=== PATIENT | female | born 1975 | race Caucasian/White ===

== ENCOUNTER 2020-02-01 21:59 | Outpatient (REF) | payer SELFPAY ==
[2020-02-01 22:25] LABS: ALT 26 U/L (14-59); AST 15 U/L (15-37); Albumin 4.1 g/dL (3.4-5.0); Alkaline Phosphatase 74 U/L (46-116); BUN 12 mg/dL (7-18); Bilirubin, Total 0.3 mg/dL (0.2-1.0); Calcium 9.2 mg/dL (8.5-10.1); Calculated LDL 97 mg/dL (<100); Chloride 105 mmol/L (98-107); Cholesterol 185 mg/dL (<200); Glucose 91 mg/dL (74-106); HDL Cholesterol 48 mg/dL (40-60); Potassium 4.5 mmol/L (3.5-5.1); Sodium 142 mmol/L (136-145); Total Protein 7.4 g/dL (6.4-8.2); Triglyceride 200 mg/dL (<150)
[2020-02-01 22:30] LABS: Hemoglobin A1C 5.6 % (3.8-5.6)
== END 2020-02-01 22:19 ==
LOC: NCHCN 21:59
PROVIDERS: PCP Internal Medicine; Visit Provider Family Medicine
DX: Z00.00 Encounter for general adult medical examination without abnormal findings (principal); F11.11 Opioid abuse, in remission; I10 Essential (primary) hypertension; E66.9 Obesity, unspecified
CPT/HCPCS: 80053; 80061; 83036

== ENCOUNTER 2020-02-11 17:10 | Outpatient (REF) | payer OTHER, SELFPAY ==
[2020-02-11 21:15] LABS: Anion Gap 7.3 mmol/L (3-11); BUN 14 mg/dL (7-18); CO2 28.7 mmol/L (21.0-32.0); Calcium 9.2 mg/dL (8.5-10.1); Chloride 105 mmol/L (98-107); Glucose 90 mg/dL (74-106); Potassium 4.3 mmol/L (3.5-5.1); Sodium 141 mmol/L (136-145)
== END 2020-02-11 17:30 ==
LOC: NCHCN 17:10
PROVIDERS: PCP Internal Medicine; Visit Provider Family Medicine
DX: I10 Essential (primary) hypertension (principal)
CPT/HCPCS: 80048

== ENCOUNTER 2021-03-19 17:50 | Outpatient (REF) | payer OTHER, SELFPAY ==
[2021-03-19 21:19] LABS: ESR 8 mm/hr (0-20)
[2021-03-19 21:38] LABS: C-Reactive Protein 0.13 mg/dL (0.0-0.3)
== END 2021-03-19 17:51 | disposition home or self-care (01) ==
LOC: NCHCN 17:50
PROVIDERS: PCP Internal Medicine; Visit Provider Nurse Practitioner Community Health
DX: R20.0 Anesthesia of skin (principal); I73.00 Raynaud's syndrome without gangrene; G43.909 Migraine, unspecified, not intractable, without status migrainosus; G47.62 Sleep related leg cramps; E66.9 Obesity, unspecified
CPT/HCPCS: 85652; 86140

== ENCOUNTER 2021-04-19 10:44 | Emergency (ER) | payer OTHER, SELFPAY ==
[2021-04-19 10:49] VITALS: BP 181/112; PULSE 94; RESP 16; TEMP 36.5; O2SAT 99
--- NOTE | 2021-04-19 11:20 | ED.GENADUL_ITS ---
Discharge Plan Disposition Patient Disposition: HOME Condition: Stable Discharge Details Clinical Impression: Acute otitis externa of left ear Primary Care Provider: Geo Cancino ED Provider: Bismark Ríos Home Meds and New Rx's Prescriptions: New ciprofloxacin HCl 750 mg tablet 750 mg PO BID Qty: 13 RF: 0 ciprofloxacin-dexamethasone [Ciprodex] 0.3-0.1 % drops,suspension 4 drp otic (ear) BID Qty: 7.5 RF: 0 Continued methadone 10 mg/5 mL Solution 105 DAILY RF: 0 methylphenidate HCl 20 mg tablet 20 mg PO TID RF: 0 nifedipine 90 mg Tablet Extended Release 90 mg PO DAILY Qty: 30 RF: 0 lisinopril 5 mg Tablet 5 mg PO DAILY Qty: 30 RF: 0 Discharge Instructions Instructions: Ciprofloxacin/Dexamethasone (Into the ear), How to Stop Smoking (ED), Otitis Externa (ED) Additional Instructions: Please take full course of oral antibiotic as prescribed. Apply 4 drops of antibiotic solution to your left ear twice a day for the next week. Please contact your primary care physician to arrange follow-up. Please follow-up with nuclear technologist Return to the ER for any worsening or new concerning symptoms. Stand Alone Forms: Work Release Referrals: Geo Cancino [Primary Care Provider] - Lester Gar MD [ [facility] STAFF PHYSICIAN] - Medical Decision Making 1124 --46-year-old female smoker here with left ear pain and discharge, significant swelling external auditory canal with tenderness and erythema left mastoid. Suspect acute otitis externa. Considered malignant otitis externa. Plan to obtain CT of the temporal bone. Patient is hypertensive. She notes she has not been taking her antihypertensive regularly as prescribed. Patient has her lisinopril and will take prescribed dose. --Fingerstick glucose within normal limits. 1158 --CT of the sinuses interpreted by radiology, I spoke with Dr. Bonilla who notes no bony destruction and no significant mastoid inflammatory changes. He does note inflammation of the external ear and also fluid inner ear. 1228 --I called and spoke with Dr. Aguirre, on-call ENT, discussed ED presentation and course including diagnostics, he recommends ciprofloxacin 750 twice daily x1 week as well as Cipro Dex drops. He will be happy to see the patient in follow-up. EKG reviewed and interpreted by me to assess for QT prolongation given methadone use: Sinus rhythm 77 bpm, normal axis, QTC 431. Patient provided informed consent to treat with Cipro. An ear wick was placed left ear and Ciprodex initiated. Patient was encouraged to follow-up and usual customary discharge instructions were reviewed with patient. I discussed with patient the need to take her antihypertensives as prescribed. HPI General Mode of arrival: ambulatory . Date/Time Provider Initiated Documentation: 04/19/21 10:52 . Limitations to Documentation: no limitations . Information obtained by: patient . HPI Narrative: 46-year-old female smoker with history of hypertension, poorly compliant with antihypertensives, here with chief complaint of left ear pain. Pain started 4 days ago and has persisted. Pain is constant and severe. She has associated yellow drainage from the ear recently and also has pain behind her ear. She has had associated subjective fever. No associated headache. Related Data Home Medications Medication Instructions Recorded Confirmed ciprofloxacin HCl 750 mg PO BID #13 tab 04/19/21 ciprofloxacin-dexamethasone 4 drp OTIC (EAR) BID #7.5 ml 04/19/21 [Ciprodex] lisinopril 5 mg PO DAILY #30 tab 04/19/21 methadone 105 DAILY 04/19/21 methylphenidate HCl 20 mg PO TID 04/19/21 04/19/21 nifedipine 90 mg PO DAILY #30 tab 04/19/21 Previous Rx's Medication Instructions Recorded ciprofloxacin HCl 750 mg PO BID #13 tab 04/19/21 ciprofloxacin-dexamethasone 4 drp OTIC (EAR) BID #7.5 ml 04/19/21 [Ciprodex] lisinopril 5 mg PO DAILY #30 tab 04/19/21 nifedipine 90 mg PO DAILY #30 tab 04/19/21 Allergies Allergy/AdvReac Type Severity Reaction Status Date / Time No Known Allergies Allergy Unverified 04/19/21 11:02 General Stated Complaint: EarProblem JACLYN: 4 Review of Systems All systems reviewed & are unremarkable except as noted in HPI and below Constitutional Constitutional: Reports as per HPI and Reports fever(s) ENT Ears, Nose, Mouth, and Throat: Reports as per HPI PFSH Medical History Heart murmur Hypertension Smoker Social History Smoking/Tobacco Use Status: Current every day Tobacco Type: cigarettes Smoking risk assessment performed?: Yes Alcohol Intake: current Alcohol Intake frequency: holidays/special occasions only Substance use type: does not use Exam Const General: cooperative and no acute distress HENMT Head: normocephalic and atraumatic Ears: EAC abnormal edema on the left and EAC tenderness on the left; no foreign body and no otic discharge, external ear abnormal pain with movement of external ear, mastoid abnormal (erythema and ttp), periauricular adenopathy on the left and unable to visualize TM on the left General nose exam: external nose normal Mouth: moist mucous membranes Throat: posterior oropharynx normal Eyes Conjunctivae: normal conjunctivae Sclera: normal sclerae Neck Neck: trachea midline and supple Resp Auscultation: clear to auscultation bilaterally, no rales, no rhonchi and no wheezes Cardio Rate: regular rate and not tachycardic Rhythm: regular rhythm Skin General skin exam: no rashes or lesions noted Neuro General: patient alert, patient awake, patient oriented x3 and tone normal Extrem General: no edema Psych Appearance: grossly normal Mental Status: mental status grossly normal Course Vital Signs Vital signs: Vital Signs Temperature 36.5 C 04/19/21 10:49 Pulse 94 H 04/19/21 10:49 Respiratory Rate 16 04/19/21 10:49 Blood Pressure 181/112 H 04/19/21 10:49 Pulse Oximetry 99 04/19/21 10:49 Temperature 36.5 C 04/19/21 10:49 Pulse 94 H 04/19/21 10:49 Respiratory Rate 16 04/19/21 10:49 Respiratory Effort Non-Labored 04/19/21 10:49 Blood Pressure 181/112 H 04/19/21 10:49 Blood Pressure Position Sitting 04/19/21 10:49 Pulse Oximetry 99 04/19/21 10:49 Oxygen Delivery Method Room Air 04/19/21 10:49 Oxygen Flow Rate 0 04/19/21 10:49 Pain Level 2 04/19/21 10:49
--- NOTE | 2021-04-19 11:38 | DI.CT_ITS ---
Exam(s) CT TEMPORAL BONE WO EXAM: CT TEMPORAL BONE WO CLINICAL HISTORY: assess for mastoiditis, post auricular pain. TECHNIQUE: Imaging Protocol: Axial computed tomography images with coronal and sagittal reformatted images were created and reviewed. CONTRAST MATERIAL: Intravenous: None- COMPARISON: No exams were available for comparison FINDINGS: PARANASAL SINUSES: There is no significant mucosal thickening or fluid in the maxillary, sphenoid, an d frontal sinuses. In addition the ethmoidal air cells are clear. There is opacification of the left external auditory canal. Also fluid in the left middle ear cavity and surrounding the ossicles. There is no destruction of the scutum. Mild fluid in the aditus ad a ntrum and minimal amount of fluid noted in the in a few ipsilateral mastoid air cells. Ipsilateral semi circular canals appear unremarkable. IMPRESSION: Left side otitis externa and otitis media. Also some fluid in the ipsilateral mastoid air cells. EN T follow-up recommended. RADIATION DOSE DELIVERED: 338.47mGy.cm Total DLP DATA REPOSITORY: All CT scans at this facility are submitted to the National Radiology Data Registry (NRDR) Dose Index Registry (DIR) with the [employer] ([employer]). RADIATION OPTIMIZATION: All CT scans at this facility use at least one of these dose optimization te chniques: automated exposure control; mA and/or kV adjustment per patient size (includes targeted exa ms where dose is matched to clinical indication); or iterative reconstruction.
--- NOTE | 2021-04-19 12:00 | RT.EKG_ITS ---
APPROVED REPORT Exam: Resting ECG Reason for Exam: tanner aren[place], consider prolonged QT Patient Location: E HR:77 bpm ECG Measurements Heart Rate 77 AXIS WA 119 P 33 QRSd 83 QRS -2 QT 381 T 6 QTc 431 Conclusion Sinus rhythm...normal P axis, V-rate 60- 99
[2021-04-19] MEDS: Ciprofloxacin 250 MG TAB 750 MG PO (12:20)
[2021-04-19] MEDS: Ciprofloxacin/Dexameth. 7.5 ML BTL AS (12:20)
--- NOTE | 2021-04-20 08:17 | NUR.NOTE ---
/Nursing Note: referral faxed to ENT/ 04/20/21 libl
== END 2021-04-19 12:35 | disposition home or self-care (01) ==
PROVIDERS: Emergency Provider Student in an Organized Health Care Education/Training Program; PCP Internal Medicine
DX: H60.392 Other infective otitis externa, left ear (principal)
CPT/HCPCS: 36416; 82962; 93005; 99284; 70480; 93010; 99283

== ENCOUNTER 2021-05-10 14:40 | Outpatient (REF) | payer OTHER, SELFPAY ==
[2021-05-10 20:45] LABS: Anion Gap 5.2 mmol/L (3-11); BUN 12 mg/dL (7-18); CO2 29.8 mmol/L (21.0-32.0); CREATININE 0.8 mg/dL (0.55-1.02); Calcium 9.2 mg/dL (8.5-10.1); Chloride 106 mmol/L (98-107); Glucose 92 mg/dL (74-106); Potassium 4.4 mmol/L (3.5-5.1); Sodium 141 mmol/L (136-145)
== END 2021-05-10 14:41 | disposition home or self-care (01) ==
LOC: NCHCN 14:40
PROVIDERS: PCP Internal Medicine; Referring Provider Family Medicine; Visit Provider Family Medicine
DX: I10 Essential (primary) hypertension (principal)
CPT/HCPCS: 80048

== ENCOUNTER 2022-10-29 15:24 | Outpatient (REF) | payer OTHER, SELFPAY ==
[2022-10-29 15:57] LABS: ALT 32 U/L (14-59); AST 16 U/L (15-37); Albumin 4.1 g/dL (3.4-5.0); Alkaline Phosphatase 76 U/L (46-116); Anion Gap 5.6 mmol/L (3-11); BUN 17 mg/dL (7-18); Bilirubin, Total 0.3 mg/dL (0.2-1.0); CO2 29.4 mmol/L (21.0-32.0); CREATININE 0.9 mg/dL (0.55-1.02); Calcium 9.4 mg/dL (8.5-10.1); Calculated LDL 138 mg/dL (<100); Chloride 103 mmol/L (98-107); Cholesterol 217 mg/dL (<200); Estimated GFR 80.34 (mL/min/1.73m2); Glucose 128 mg/dL (74-106); HDL Cholesterol 49 mg/dL (40-60); Potassium 4.4 mmol/L (3.5-5.1); Sodium 138 mmol/L (136-145); TSH (W/Ref FT4) 1.06 uIU/mL (0.36-3.74); Total Protein 7.9 g/dL (6.4-8.2); Triglyceride 153 mg/dL (<150)
[2022-10-29 16:06] LABS: Hemoglobin A1C 6.5 % (<5.7)
== END 2022-10-29 15:25 | disposition home or self-care (01) ==
LOC: NCHCN 15:24
PROVIDERS: PCP Internal Medicine; Visit Provider Family Medicine
DX: Z00.00 Encounter for general adult medical examination without abnormal findings (principal); I10 Essential (primary) hypertension; E66.8 Other obesity; R73.09 Other abnormal glucose
CPT/HCPCS: 80053; 80061; 83036; 84443

== ENCOUNTER 2022-11-29 16:17 | Outpatient (REF) | payer OTHER, SELFPAY ==
[2022-11-29 15:16] LABS: Hemoglobin A1C 6.5 % (<5.7)
== END 2022-11-29 16:18 | disposition home or self-care (01) ==
LOC: NCHCN 16:17
PROVIDERS: PCP Internal Medicine; Visit Provider Family Medicine
DX: Z13.1 Encounter for screening for diabetes mellitus (principal)
CPT/HCPCS: 83036

== ENCOUNTER 2022-12-10 19:49 | Outpatient (REF) | payer OTHER, SELFPAY ==
[2022-12-10 21:55] LABS: Microalb ug/mg Crea 5.6 ug/mg Cr
== END 2022-12-10 19:50 | disposition home or self-care (01) ==
LOC: NCHCN 19:49
PROVIDERS: PCP Internal Medicine; Visit Provider Family Medicine
DX: E11.9 Type 2 diabetes mellitus without complications (principal)
CPT/HCPCS: 82043; 82570

== ENCOUNTER 2023-06-10 09:32 | Outpatient (REF) | payer OTHER, SELFPAY ==
[2023-06-10 16:05] LABS: HGB 14.7 g/dL (11.2-15.7); MCH 29.1 pg (27.0-33.0); MCHC 31.3 % (32.0-36.0); MCV 93 fL (80-95); MPV 9.7 fL (8.0-11.0); Platelet Count 327 10^3/uL (130-400); RBC 5.06 10^6/uL (3.93-5.22); RDW 13.5 % (11.7-14.6); RDW-SD 46.3 fL; WBC 7.88 10^3/uL (4.4-10.8)
[2023-06-10 16:39] LABS: ALT 35 U/L (14-59); AST 18 U/L (15-37); Albumin 3.7 g/dL (3.4-5.0); Alkaline Phosphatase 73 U/L (46-116); Anion Gap 8.6 mmol/L (3-11); BUN 9 mg/dL (7-18); Bilirubin, Total 0.2 mg/dL (0.2-1.0); CO2 26.4 mmol/L (21.0-32.0); CREATININE 0.8 mg/dL (0.55-1.02); Calcium 9.2 mg/dL (8.5-10.1); Calculated LDL 119 mg/dL (<100); Chloride 104 mmol/L (98-107); Cholesterol 199 mg/dL (<200); Estimated GFR 91.97 (mL/min/1.73m2); Glucose 113 mg/dL (74-106); HDL Cholesterol 48 mg/dL (40-60); Potassium 4.4 mmol/L (3.5-5.1); Sodium 139 mmol/L (136-145); Total Protein 7.6 g/dL (6.4-8.2); Triglyceride 162 mg/dL (<150)
[2023-06-10 16:59] LABS: Hemoglobin A1C 6.3 % (<5.7)
== END 2023-06-10 09:33 | disposition home or self-care (01) ==
LOC: NCHCN 09:32
PROVIDERS: PCP Internal Medicine; Visit Provider Family Medicine
DX: Z00.00 Encounter for general adult medical examination without abnormal findings (principal); E11.9 Type 2 diabetes mellitus without complications; I10 Essential (primary) hypertension; E66.8 Other obesity
CPT/HCPCS: 80053; 80061; 85027; 83036

== ENCOUNTER 2023-06-12 10:51 | Outpatient (REF) | payer OTHER, SELFPAY ==
--- NOTE | 2023-06-12 10:15 | PAPFT_PTH ---
PATIENT: Danii Alonzo LOC: [facility] U#:[id number] AGE/SX: 48/F ROOM: RE06/12/[address]: Cameron Matias : 1975 BED: DIS: 06/12/2023 SPEC #: [id number] RECD: 06/12/23 17:21 STATUS: CHRISSY REQ #: [id number] JAMES: 06/12/23 10:[address]: Cameron Matias DEPT: [facility] Cytology RECD BY: Latia Kong ENTERED: 06/12/23 17:22 SP TYPE: PAPFT OTHR DR: Geo Cancino Tissues: 1 - CX/ENDOCX FOR PAP SMEARS Procedures: PAP THIN PREP/[facility] Screening HPV DNA PROBE Comments: [id number] (HPV 16 & 18/45)
== END 2023-06-12 10:52 | disposition home or self-care (01) ==
LOC: NCHCN 10:51
PROVIDERS: PCP Internal Medicine; Visit Provider Family Medicine
DX: Z12.4 Encounter for screening for malignant neoplasm of cervix (principal); Z11.51 Encounter for screening for human papillomavirus (HPV); R87.610 Atypical squamous cells of undetermined significance on cytologic smear of cervix (ASC-US); R87.810 Cervical high risk human papillomavirus (HPV) DNA test positive
CPT/HCPCS: 88142; 87624

== ENCOUNTER 2025-01-20 11:44 | Outpatient (REF) | payer OTHER, SELFPAY ==
[2025-01-20 18:27] LABS: COMMENT (LAB VIEW ONLY) < 13.00 mg/dL
== END 2025-01-20 11:45 | disposition home or self-care (01) ==
LOC: NCHCN 11:44
PROVIDERS: PCP Internal Medicine; Visit Provider Family Medicine
DX: E11.9 Type 2 diabetes mellitus without complications (principal)
CPT/HCPCS: 82043; 82570

== ENCOUNTER 2025-02-03 15:17 | Outpatient (REF) | payer OTHER, SELFPAY ==
[2025-02-03 16:03] LABS: ALT 37 U/L (14-59); AST 18 U/L (15-37); Albumin 4.2 g/dL (3.4-5.0); Alkaline Phosphatase 101 U/L (46-116); Anion Gap 8.7 mmol/L (3-11); BUN 12 mg/dL (7-18); Bilirubin, Total 0.3 mg/dL (0.2-1.0); CO2 28.3 mmol/L (21.0-32.0); CREATININE 0.9 mg/dL (0.55-1.02); Calcium 9.5 mg/dL (8.5-10.1); Calculated LDL 153 mg/dL (<100); Chloride 100 mmol/L (98-107); Cholesterol 229 mg/dL (<200); Estimated GFR 79.35 (mL/min/1.73m2); Glucose 145 mg/dL (74-106); HDL Cholesterol 49 mg/dL (>or=50); Potassium 4.3 mmol/L (3.5-5.1); Sodium 137 mmol/L (136-145); Total Protein 7.9 g/dL (6.4-8.2); Triglyceride 139 mg/dL (<150)
== END 2025-02-03 15:18 | disposition home or self-care (01) ==
LOC: NCHCN 15:17
PROVIDERS: PCP Internal Medicine; Visit Provider Family Medicine
DX: E11.9 Type 2 diabetes mellitus without complications (principal)
CPT/HCPCS: 80053; 80061